=== PATIENT | female | born 1995 | race Two or more races ===

== ENCOUNTER 2017-06-04 02:06 | Emergency (ER) | payer OTHER, MEDICAID ==
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
[2017-06-04 03:10] LABS: % BASOPHILS 0.9 % (0.0-2.0); % EOSINOPHILS 1.2 % (0.0-5.0); % LYMPHOCYTES 23.9 % (20.0-50.0); % MONOCYTES 6.6 % (2.0-10.0); % NEUTROPHILS 67.4 % (40.0-80.0); HEMATOCRIT 34.7 % (35.0-45.0); HEMOGLOBIN 11.2 gm/dL (11.7-15.5); MEAN CELL VOLUME 72.1 fl (81-100); MEAN CORPUSCULAR HEMOGLOBIN 23.3 pg (27.0-31.0); MEAN CORPUSCULAR HGB CONC 32.2 pg (28.0-36.0); MEAN PLATELET VOLUME 7.3 fl; NEUTROPHILE ABSOLUTE 4.2 Th/cmm (1.8-8.0); RED BLOOD COUNT 4.81 Mil/cmm (3.80-5.10); RED CELL DISTRIBUTION WIDTH 15.9 % (11.5-20.0)
[2017-06-04 03:18] LABS: PLATELET COUNT 416 Th/cmm (150-400); WHITE BLOOD COUNT 6.3 Th/cmm (4.8-10.8)
[2017-06-04 03:25] LABS: AMPHETAMINE URINE NEGATIVE (NEGATIVE); BARBITURATES URINE NEGATIVE (NEGATIVE); METHADONE URINE NEGATIVE (NEGATIVE)
[2017-06-04 03:29] LABS: URINE BILIRUBIN NEGATIVE (NEGATIVE); URINE BLOOD TRACE (NEGATIVE); URINE COLOR YELLOW; URINE GLUCOSE (UA) NEGATIVE (NEGATIVE); URINE KETONE NEGATIVE (NEGATIVE); URINE PH 5.5; URINE PROTEIN TRACE mg/dL (NEGATIVE); URINE UROBILINOGEN 0.2 E.U./dL (0.2 - 1.0)
[2017-06-04 03:30] LABS: URINE BACTERIA FEW /hpf (NONE SEEN); URINE EPITHELIAL CELLS FEW /lpf (FEW); URINE WBC 0-2 /hpf (0-5)
[2017-06-04 03:35] LABS: ANION GAP 14.6 (7.0-16.0); BUN - UREA NITROGEN 8 mg/dL (7-25); CALCIUM SERUM 8.9 mg/dL (8.6-10.3); CARBON DIOXIDE 22.1 mEq/L (21.0-31.0); CHLORIDE 109 mEq/L (98-107); GLUCOSE 120 mg/dL (70-105); POTASSIUM SERUM 3.7 mEq/L (3.5-5.1); SODIUM SERUM 142 mEq/L (136-145)
--- NOTE | 2017-06-04 11:11 | Diagnostic Imaging Report ---
CT Examination of Brain without Contrast History: Head injury Total DLP equals 564 CTDI equals 33.2 Multiple contiguous sections of the brain were obtained from base skull to the vertex without the administration of the contrast material ,no prior studies available for comparison. The study demonstrates abnormal density brain parenchyma. There is no evidence for hemorrhage or midline shift or edema. The cerebellum is intact. The ventricles are normal. The paranasal sinuses are well aerated. The bony calvarium is intact. Impression: 1. Normal examination of brain
== END 2017-06-04 04:00 | disposition home or self-care (01) ==
LOC: ER 02:06
DX: S09.90XA Unspecified injury of head, initial encounter (principal); F10.129 Alcohol abuse with intoxication, unspecified; Z91.041 Radiographic dye allergy status; W51.XXXA Accidental striking against or bumped into by another person, initial encounter; Y93.89 Activity, other specified; Y92.89 Other specified places as the place of occurrence of the external cause; Y99.8 Other external cause status
CPT/HCPCS: 36415-UA; 70450-TC; 80048-TC; 80307; 80320-TC; 81001-TC; 85025-TC